=== PATIENT | female | born 1950 | race Caucasian/White ===

== ENCOUNTER 2023-08-12 13:12 | Emergency (ER) | payer MEDICARE, OTHER, SELFPAY ==
[2023-08-12] VITALS (10 sets, daily range): BP systolic 131–174; BP diastolic 68–85; BMI 26.5
[2023-08-12 14:05] LABS: % Basophils 0.7 % (0-2); % Eosinophils 1.8 % (0-6); % Immature Granulocytes 0.2 % (0-0.5); % Lymphocytes 29.7 % (20.5-51.1); % Monocytes 11.8 % (1.7-9.3); % Neutrophils 55.8 % (42.2-75.2); Absolute Eosinophils 0.1 10^3/uL (0-0.7); Absolute Lymphocytes 1.8 10^3/uL (1.2-3.4); Absolute Monocytes 0.7 10^3/uL (0.1-0.6); Absolute Neutrophils 3.4 10^3/uL (1.4-6.5); Hematocrit 38.3 % (37.0-47.0); Hemoglobin 13.5 g/dL (12.0-16.0); Mean Corp Hgb Conc. 35.2 g/dL (33.0-37.0); Mean Corpuscular Hgb 31.9 pg (27.0-31.0); Mean Corpuscular Volume 90.5 fL (81.0-99.0); Mean Platelet Volume 8.5 fL (7.4-10.4); Nucleated Red Blood Cells % 0 %; Platelet Count 212 10^3/uL (130-400); Red Blood Cell Count 4.23 10^6/uL (4.20-5.40); Red Cell Dist. Width 12.3 % (11.5-14.5)
[2023-08-12 14:20] LABS: ALT (SGPT) 21 U/L (0-35); AST (SGOT) 26 U/L (14-36); Albumin 4.1 g/dl (3.5-5.0); Alkaline Phosphatase 74 U/L (38-126); Blood Urea Nitrogen 20 mg/dl (7-17); Calcium 9.3 mg/dl (8.4-10.2); Carbon Dioxide 27 mmol/L (22-30); Chloride 105 mmol/L (98-107); Estimated Creatinine Clearance 43 ml/min; Glucose 95 mg/dl (70-99); Potassium 4.3 mmol/L (3.5-5.1); Sodium 140 mmol/L (135-145); Total Bilirubin 0.9 mg/dl (0.2-1.3); Total Protein 6.7 g/dl (6.3-8.2); eGFR > 60.00
[2023-08-12 14:30] LABS: Troponin I < 0.012 ng/ml
--- NOTE | 2023-08-12 15:05 | ED.GENMED ---
History of Present Illness
General
Chief Complaint: Chest Pain
Source: patient
Time Seen by Provider: 08/12/23 14:42
Travel History
Have you had any contact with someone who has COVID-19?: No
Do you have any symptoms of coronavirus? Fever > 100 degrees, chills, cough, shortness of breath, sore throat, loss of taste or smell, muscle aches, or headache?: No
History of Present Illness
History of Present Illness:
73-year-old female with past medical history of CAD status post coronary stent presenting to the emergency department after awakening this morning feeling a little bit lightheaded, blood pressure was significantly low around 77/50 on 2 separate
checks, symptoms resolving after a little while and drinking fluids. Around 1030 to 11 AM started to feel some discomfort on the left axillary region described to be a pulling sensation as well as a little bit of a headache prompting her to come to
the emergency department for further evaluation. Patient notes that she has a scheduled echocardiogram this coming as part of routine monitoring following her cardiac event. Presently, patient notes she is asymptomatic. Patient also
notes she had a little bit of a headache this morning but this is also resolved. Patient does note a recent change to her amlodipine and is not sure if maybe this is related.
Past History
Past History
ED Past Medical History: CAD, Hypercholesterolemia, Psychiatric (PTSD) and Other (Hep C)
ED Past Surgical History: Cardiac, Cholecystectomy, (X 2) and Gynecological (Hysterectomy)
Social History
Tobacco: Former smoker
Alcohol: Occasional
Drug: None
Personal:
Living: alone
Review of Systems
Review of Systems
All Other Systems: ROS reviewed and negative except as documented in HPI and ROS
Phy Exam
Physical Exam
Physical Exam:
GENERAL: Alert , in no apparent distress
EYE: clear conjunctiva b/l
HEAD: NCAT
ENT: o/p clr, mmm.
CARDIAC: Regular rate and rhythm, no murmur.
LUNGS: Clear breath sounds bilaterally, no acute respiratory distress, no wheezes/rales/rhonchi
ABDOMEN: Soft, without focal tenderness, no r/g, no cvat
NEUROLOGICAL: Alert and oriented
SKIN: Warm and dry, skin intact.
MUSCULOSKELETAL: No edema, well perfused.
PSYCH: Normal and appropriate interaction.
Scores
Heart Failure Risk
Heart Failure Risk Score: Not Applicable
Heart Score for Chest Pain Patients
STEMI patient?: No
History: Slightly or Non-Suspicious
ECG: Normal
Age: >/= 65 years
Risk Factors: >/= 3 Risk Factors or History of CAD
Troponin: </= Normal Limit
Heart Score for Chest Pain Patients: 4
Heart Score Risk: 20.3% MACE over next 6 weeks
Withdrawal Assessment of Alcohol
Withdrawal Assessment Completed?: Not applicable
Course
Orders/Labs/Results
Orders:
Orders
08/12/23 13:26
EKG [Electrocardiogram (*1)] Urgent
Reason for Study: Chest Pain
EKG- Treatment ONCE
08/12/23 13:54
Complete Blood Count/With Diff Urgent
Comprehensive Metabolic Panel Urgent
Troponin I Urgent
08/12/23 16:30
Troponin I Urgent
Abnormal Lab Results
24
13:54
MCH 31.9 H pg
(27.0-31.0)
Absolute Monos (auto) 0.7 H 10^3/uL
(0.1-0.6)
Monocytes % 11.8 H %
(1.7-9.3)
BUN 20 H mg/dl
(7-17)
08/12/23 13:54
08/12/23 13:54
Vital Signs
Initial and Last Documented VS:
Initial Vital Signs
Pulse Resp Pulse Ox
59 19 99
08/12/23 13:25 08/12/23 13:25 08/12/23 13:25
Last Documented Vital Signs
Temp Pulse Resp BP Pulse Ox
98.0 F 58 18 135/78 97
08/12/23 13:28 08/12/23 17:30 08/12/23 17:30 08/12/23 17:00 08/12/23 17:30
MDM/Problems Addressed
Differential Diagnosis Includes:
Symptomatic hypotension, medication side effect, less concern for ACS. Patient is noted to be hypertensive here so she could be experiencing symptomatic hypo and hypertension
MDM/Problems Addressed:
73-year-old female presenting emergency department for evaluation after noticing blood pressure this morning was a little bit low, was experiencing symptoms from this and after drinking fluids blood pressure improved. Patient notes that since
arriving to the emergency department her blood pressure has been slightly elevated now. She does note that she is currently asymptomatic and without any concerns. Patient's biggest concern was a pulling sensation was feeling in her left axillary
region. Given her history of coronary stent decided to come to the ER for further evaluation. EKG nonischemic, labs were initiated from triage and are largely unremarkable. Will repeat a troponin. Patient has already scheduled follow-up this
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 She is agreeable with this plan.
Chronic conditions affecting care: CAD
*Pulse Oximetry
Patient hypoxic: no
*EKG
Interpreted by ED Provider?: Yes
Heart Rate: 55
Rate: bradycardiac
Rhythm: sinus
Ischemia: no ischemia
*Tack Driller Interpretation
Rate: bradycardiac
Rhythm: sinus
*Critical Care Note
Total Time (30-74mins, 75-104mins- exclusive of procedures): Not Applicable
Data Reviewed
Review of Other/Old Records Reveals: Labs and Discharge Summary
Patient Management
Escalation/DeEscalation of care consider admission/obs:
Patient's repeat troponin is negative. She remains asymptomatic. Stable for discharge home and outpatient follow-up.
ED Attending Note
-
Portions of this chart may have been created with voice recognition software.� Occasional wrong word or��sound alike� substitutions may have occurred due to the inherent limitations of voice recognition software.
Discharge Plan
Departure
Patient Disposition: Home (Routine Discharge)
Date of Disposition: 08/12/23
Time of Disposition: 17:13
Patient with high blood pressure during this ER visit?: Yes
Discharge Problem:
Chest pain, Hypertension
Instructions: Chest Pain DCA Follow Up
Prescriptions:
No Action
temazepam 15 mg capsule
15 mg PO HS
Patient Comments:
01/18/2023: last filled 12/27/22, 30 tabs for 30 days from [facility]#[id number]
cholecalciferol (vitamin D3) 25 mcg (1,000 unit) Capsule
25 mcg PO DAILY
atorvastatin 80 mg Tablet
80 mg PO QPM Qty: 90 3RF
aspirin 81 mg Tablet,Chewable
81 mg PO DAILY Qty: 0 0RF
amlodipine 5 mg Tablet
5 mg PO DAILY Qty: 90 3RF
clopidogrel 75 mg Tablet
75 mg PO DAILY Qty: 90 3RF
pantoprazole 40 mg Tablet,Delayed Release (Dr/Ec)
40 mg PO DAILY Qty: 90 3RF
isosorbide mononitrate 30 mg tablet extended release 24 hr
15 mg PO DAILY
ezetimibe 10 mg tablet
10 mg PO QPM
Referrals:
Cathie Osuna DO [Family Provider] -
[2023-08-12 17:02] LABS: Troponin I < 0.012 ng/ml
== END 2023-08-12 17:15 | disposition home or self-care (01) ==
LOC: EMR 13:12
PROVIDERS: Physician Assistant Medical; EMERGENCY PHYSICIAN Emergency Medicine; FAMILY PHYSICIAN Internal Medicine
DX: R07.89 Other chest pain (principal); R42 Dizziness and giddiness; R51.9 Headache, unspecified; I10 Essential (primary) hypertension; I25.10 Atherosclerotic heart disease of native coronary artery without angina pectoris; Z95.5 Presence of coronary angioplasty implant and graft; E78.00 Pure hypercholesterolemia, unspecified; F43.10 Post-traumatic stress disorder, unspecified; Z87.891 Personal history of nicotine dependence; Z86.19 Personal history of other infectious and parasitic diseases; Z79.82 Long term (current) use of aspirin; Z90.49 Acquired absence of other specified parts of digestive tract
CPT/HCPCS: 99283; 80053; 84484; 85025; 93005

== ENCOUNTER 2023-10-09 23:37 | Emergency (ER) | payer MEDICARE, OTHER, SELFPAY ==
[2023-10-09 23:39] VITALS: BP 150/70
--- NOTE | 2023-10-09 23:47 | ED.GENMED ---
History of Present Illness
<GOLDIE Mejias - Last Filed: 10/10/23 04:50>
General
Chief Complaint: Breathing Problem
Source: patient and family
Time Seen by Provider: 10/09/23 23:45
Travel History
Have you had any contact with someone who has COVID-19?: No
Do you have any symptoms of coronavirus? Fever > 100 degrees, chills, cough, shortness of breath, sore throat, loss of taste or smell, muscle aches, or headache?: No
History of Present Illness
History of Present Illness:
73 year old female presents with c/o R hand cramping followed by 15 sec duration of hand tremor. She was sitting on the couch when her she felt a sudden onset of her R hand cramp up shortly followed by hand tremor for about 15 seconds before gaining
full function again. She states she got up from the couch after this incident when she felt lightheaded and stumbled to the right. She also reports perioral numbness 2 days ago that lasted about 10 minutes. Her symptoms have completely resolved at
this time. She is currently being followed by a die holder for 2 month history of SOB and lightheadedness. She admits her blood pressure is low during these times. She currently has a heart monitor on and documents any symptoms she has. She had a
stress test and echocardiogram completed last week and will be following up with her die holder within next month to review her heart monitor results.
Past History
<GOLDIE Mejias - Last Filed: 10/10/23 04:50>
Past History
ED Past Medical History: CAD, Hypercholesterolemia, Psychiatric (PTSD) and Other (Hep C)
ED Past Surgical History: Cardiac, Cholecystectomy, (X 2) and Gynecological (Hysterectomy)
Social History
Tobacco: Former smoker
Alcohol: Occasional
Drug: None
Personal:
Living: alone
Review of Systems
<GOLDIE Mejias - Last Filed: 10/10/23 04:50>
Review of Systems
Allergies reviewed?: Yes
All Other Systems: Not applicable
Constitutional: Reports no symptoms
EENT: Reports no symptoms
Respiratory: Reports no symptoms
Cardiac: Reports no symptoms
ABD/GI: Reports no symptoms
: Reports no symptoms
Musculoskeletal: Reports other (R hand cramping and tremor)
Skin: Reports no symptoms
Neurological: Reports dizzy and other (Gait abnormality )
Endocrine: Reports no symptoms
Hematologic/Lymphatic: Reports no symptoms
Psychiatric: Reports no symptoms
Phy Exam
<GOLDIE Mejias - Last Filed: 10/10/23 04:50>
General Physical Exam
General Presentation: well appearing and no apparent distress
General Skin: warm and dry
General Habitus: normal
General Mental: alert
General Hydration: appears well hydrated
ENT Exam
ENT Exam: EOMI, pharynx normal, neck supple and normocephalic
Eye Exam
Eye Exam: PERRL, cornea clear and conjunctiva normal
Cardiovascular Exam
Cardiovascular Exam: regular rate/rhythm, no edema and normal peripheral pulses
Pulmonary Exam
Pulmonary Exam: lungs clear, no respiratory distress, no rales, no crackles, no rhonchi, no stridor, no wheezing and no cough
Gastrointestinal Exam
Gastrointestinal Exam: normal bowel sounds, non tender, soft, no organomegaly, no pulsatile mass and non distended
Neurological Exam
Neurological Exam: alert, oriented x3, no motor deficits and speech normal
Musculoskeletal Exam
Musculoskeletal Exam: full ROM and no edema
Skin Exam
Skin Exam: normal color, warm/dry, no rash and no petechia
Psychiatric Exam
Psychiatric Exam: normal mood/affect
Scores
<Clary Silvestre GAYLE - Last Filed: 10/10/23 04:50>
Heart Failure Risk
Heart Failure Risk Score: Not Applicable
<Harshad Quinn DO - Last Filed: 10/10/23 04:50>
Heart Failure Risk
Heart Failure Risk Score: Not Applicable
Course
<GOLDIE Mejias - Last Filed: 10/10/23 04:50>
Orders/Labs/Results
Orders:
Orders
10/10/23 00:11
CT Head W/o Iv Contrast Urgent
Comment:
Reason For Exam: numbness leaning to right
10/10/23 00:14
CMP [Comprehensive Metabolic Panel] Urgent
Complete Blood Count/With Diff Urgent
Troponin I Urgent
Abnormal Lab Results
10/10/23
00:14
MCH 32.0 H pg
(27.0-31.0)
Abs Immat Gran (auto) 0.1 H 10^3/uL
(0-0.05)
Absolute Monos (auto) 0.8 H 10^3/uL
(0.1-0.6)
Immature Gran % 0.8 H %
(0-0.5)
Monocytes % 10.7 H %
(1.7-9.3)
BUN 18 H mg/dl
(7-17)
Glucose 114 H mg/dl
(70-99)
ALT 37 H U/L
(0-35)
10/10/23 00:14
10/10/23 00:14
Vital Signs
Initial and Last Documented VS:
Initial Vital Signs
Temp Pulse Resp BP Pulse Ox
97.8 F 62 18 150/70 98
10/09/23 23:39 10/09/23 23:39 10/09/23 23:39 10/09/23 23:39 10/09/23 23:39
Last Documented Vital Signs
Temp Pulse Resp BP Pulse Ox
97.8 F 61 18 119/60 97
10/09/23 23:39 10/09/23 23:56 10/09/23 23:39 10/10/23 00:50 10/10/23 00:50
<Harshad Quinn, DO - Last Filed: 10/10/23 04:50>
Orders/Labs/Results
Orders:
Orders
10/10/23 00:11
CT Head W/o Iv Contrast Urgent
Comment:
Reason For Exam: numbness leaning to right
10/10/23 00:14
CMP [Comprehensive Metabolic Panel] Urgent
Complete Blood Count/With Diff Urgent
Troponin I Urgent
Abnormal Lab Results
10/10/23
00:14
MCH 32.0 H pg
(27.0-31.0)
Abs Immat Gran (auto) 0.1 H 10^3/uL
(0-0.05)
Absolute Monos (auto) 0.8 H 10^3/uL
(0.1-0.6)
Immature Gran % 0.8 H %
(0-0.5)
Monocytes % 10.7 H %
(1.7-9.3)
BUN 18 H mg/dl
(7-17)
Glucose 114 H mg/dl
(70-99)
ALT 37 H U/L
(0-35)
10/10/23 00:14
10/10/23 00:14
Vital Signs
Initial and Last Documented VS:
Initial Vital Signs
Temp Pulse Resp BP Pulse Ox
97.8 F 62 18 150/70 98
10/09/23 23:39 10/09/23 23:39 10/09/23 23:39 10/09/23 23:39 10/09/23 23:39
Last Documented Vital Signs
Temp Pulse Resp BP Pulse Ox
97.8 F 61 18 119/60 97
10/09/23 23:39 10/09/23 23:56 10/09/23 23:39 10/10/23 00:50 10/10/23 00:50
<GOLDIE Mejias - Last Filed: 10/10/23 04:50>
MDM/Problems Addressed
Differential Diagnosis Includes:
Muscle cramping and spasm, dehydration, stroke. Dehydration was considered due to patients reported symptom of lightheadedness and hand cramping. Will order labs to follow electrolytes. Stroke was considered due tp patient's gait abnormality.
<GOLDIE Mejias - Last Filed: 10/10/23 04:50>
*Critical Care Note
Total Time (30-74mins, 75-104mins- exclusive of procedures): Not Applicable
<Harshad Quinn DO - Last Filed: 10/10/23 04:50>
*Critical Care Note
Total Time (30-74mins, 75-104mins- exclusive of procedures): Not Applicable
ED Attending Note
<GOLDIE Mejias - Last Filed: 10/10/23 04:50>
-
Portions of this chart may have been created with voice recognition software.� Occasional wrong word or��sound alike� substitutions may have occurred due to the inherent limitations of voice recognition software.
<Harshad Quinn DO - Last Filed: 10/10/23 04:50>
ED Attending Note
Patient seen and examined by attending physician: Yes
I performed the substantive portion of visit, reviewed & personally made and approve the management plan that is documented in note by myself or BALDOMERO.: Yes
ED Attending Note:
Pleasant 73-year-old female who presents with right hand cramping and shaking. This lasted several seconds this evening. Patient has been having symptoms for the last few months. She does follow-up with cardiology at [facility] and has a event monitor
in place. She states in the last week he has pushed the event recorder '80 times '2 to various complaints such as palpitations numbness and orthostatic hypotension. She denies any chest pain or shortness of breath. She does have a history of
coronary artery disease with coronary stenting. Patient states that tonight she got up from the couch and felt lightheaded and started to stumble towards the right. She states that the symptoms completely resolved. Currently she has no
complaints. Patient had stress testing and echocardiogram last week. Her Holter monitor still has several weeks left before they evaluate the results. Patient was seen in conjunction with the PA student. I have reviewed and agree with the
history and treatment plan presented. On my independent physical exam, patient is awake, alert, and oriented x3, heart is regular rate and rhythm. Lungs are clear to auscultation bilaterally no wheezes rales or rhonchi. Abdomen is soft nontender.
There is borborygmi present. Moves all 4 extremities. Skin is warm and dry. Neurologically she is completely intact. Cranial nerves II through XII are grossly intact. No neurological deficits noted.
Discharge Plan
Departure
Patient Disposition: Home (Routine Discharge)
Date of Disposition: 10/10/23
Time of Disposition: 01:20
Patient with high blood pressure during this ER visit?: No
Condition: Good
Discharge Problem:
Paresthesia, Palpitations
Instructions: Palpitations, Paresthesia (DC), Hand Pain (DC), BLOOD PRESSURE
Prescriptions:
No Action
temazepam 15 mg capsule
15 mg PO HS
Patient Comments:
01/18/2023: last filled 12/27/22, 30 tabs for 30 days from [facility]#[id number]
cholecalciferol (vitamin D3) 25 mcg (1,000 unit) Capsule
25 mcg PO DAILY
atorvastatin 80 mg Tablet
80 mg PO QPM Qty: 90 3RF
aspirin 81 mg Tablet,Chewable
81 mg PO DAILY Qty: 0 0RF
amlodipine 5 mg Tablet
5 mg PO DAILY Qty: 90 3RF
clopidogrel 75 mg Tablet
75 mg PO DAILY Qty: 90 3RF
pantoprazole 40 mg Tablet,Delayed Release (Dr/Ec)
40 mg PO DAILY Qty: 90 3RF
isosorbide mononitrate 30 mg tablet extended release 24 hr
15 mg PO DAILY
ezetimibe 10 mg tablet
10 mg PO QPM
Referrals:
Cathie Osuna DO [Family Provider] -
Interventions
Interventions:
*Risk Screen - Suicide Last Done: 10/09/23 23:39
*General Assessment Last Done: 10/09/23 23:59
*Neglect/Abuse Screening Last Done: 10/09/23 23:39
*ED COVID-19 Vaccine History Last Done: 10/09/23 23:59
ED- Pulmonary Assessment Last Done: 10/09/23 23:56
ED- Cardiac Assessment Last Done: 10/09/23 23:56
Discharge Date and Time
Discharge Date/Time: 10/10/23 01:31
Print Language: BENGALI
[2023-10-09 23:54] VITALS: BP 158/71
[2023-10-09 23:55] VITALS: BMI 25.7
[2023-10-10] VITALS: BP 149/75
[2023-10-10 00:33] LABS: % Basophils 0.4 % (0-2); % Eosinophils 2.7 % (0-6); % Immature Granulocytes 0.8 % (0-0.5); % Lymphocytes 32.7 % (20.5-51.1); % Monocytes 10.7 % (1.7-9.3); % Neutrophils 52.7 % (42.2-75.2); Absolute Eosinophils 0.2 10^3/uL (0-0.7); Absolute Immature Granulocytes 0.1 10^3/uL (0-0.05); Absolute Lymphocytes 2.4 10^3/uL (1.2-3.4); Absolute Monocytes 0.8 10^3/uL (0.1-0.6); Absolute Neutrophils 3.9 10^3/uL (1.4-6.5); Hematocrit 40.3 % (37.0-47.0); Mean Corp Hgb Conc. 34.7 g/dL (33.0-37.0); Mean Corpuscular Volume 92.2 fL (81.0-99.0); Mean Platelet Volume 8.9 fL (7.4-10.4); Nucleated Red Blood Cells % 0 %; Platelet Count 249 10^3/uL (130-400); Red Blood Cell Count 4.37 10^6/uL (4.20-5.40); Red Cell Dist. Width 11.9 % (11.5-14.5); White Blood Cell Count 7.3 10^3/uL (4.8-10.8)
[2023-10-10 00:36] LABS: ALT (SGPT) 37 U/L (0-35); AST (SGOT) 34 U/L (14-36); Albumin 4.6 g/dl (3.5-5.0); Alkaline Phosphatase 71 U/L (38-126); Blood Urea Nitrogen 18 mg/dl (7-17); Calcium 9.4 mg/dl (8.4-10.2); Carbon Dioxide 29 mmol/L (22-30); Chloride 105 mmol/L (98-107); Estimated Creatinine Clearance 43 ml/min; Glucose 114 mg/dl (70-99); Potassium 4.7 mmol/L (3.5-5.1); Sodium 138 mmol/L (135-145); Total Bilirubin 0.6 mg/dl (0.2-1.3); eGFR > 60.00
[2023-10-10 00:47] LABS: Troponin I < 0.012 ng/ml
[2023-10-10 00:50] VITALS: BP 119/60
--- NOTE | 2023-10-10 04:46 | DOWNTIME ---
There was a [employer] Client Date Night Caregiver Downtime on 10/10/2023 from 0100 to 10/10/2023 at 0439. Downtime documentation of patient's care, including medication administrations, has been reconciled in the electronic record per guidelines. Refer to the
patient's paper chart under the miscellaneous tab to see printed paper medication records and downtime forms.
== END 2023-10-10 01:31 | disposition home or self-care (01) ==
LOC: EMR 23:37
PROVIDERS: EMERGENCY PHYSICIAN Student in an Organized Health Care Education/Training Program; FAMILY PHYSICIAN Internal Medicine
DX: R00.2 Palpitations (principal); R20.2 Paresthesia of skin; R42 Dizziness and giddiness; R25.2 Cramp and spasm; R06.02 Shortness of breath; R25.1 Tremor, unspecified; R20.0 Anesthesia of skin; I25.10 Atherosclerotic heart disease of native coronary artery without angina pectoris; F43.10 Post-traumatic stress disorder, unspecified; E78.00 Pure hypercholesterolemia, unspecified; Z95.5 Presence of coronary angioplasty implant and graft; Z87.891 Personal history of nicotine dependence; Z86.19 Personal history of other infectious and parasitic diseases; Z90.49 Acquired absence of other specified parts of digestive tract; Z79.82 Long term (current) use of aspirin
CPT/HCPCS: 99284; 70450; 80053; 84484; 85025

== ENCOUNTER 2025-02-16 21:32 | Emergency (ER) | payer MEDICARE, OTHER, SELFPAY ==
[2025-02-16 21:35] VITALS: BP 131/71
[2025-02-16 21:57] LABS: Hematocrit 40.0 % (37.0-47.0); Hemoglobin 14.0 g/dL (12.0-16.0); Mean Corp Hgb Conc. 35.0 g/dL (33.0-37.0); Mean Corpuscular Volume 92.6 fL (81.0-99.0); Nucleated Red Blood Cells % 0 %; Platelet Count 221 10^3/uL (130-400); Red Cell Dist. Width 12.3 % (11.5-14.5)
[2025-02-16 22:12] LABS: ALT (SGPT) 23 U/L (0-35); AST (SGOT) 26 U/L (14-36); Albumin 4.9 g/dl (3.5-5.0); Alkaline Phosphatase 68 U/L (38-126); Blood Urea Nitrogen 27 mg/dl (7-17); Calcium 9.5 mg/dl (8.4-10.2); Carbon Dioxide 24 mmol/L (22-30); Chloride 108 mmol/L (98-107); Glucose 122 mg/dl (70-99); Potassium 4.4 mmol/L (3.5-5.1); Sodium 141 mmol/L (135-145); Total Protein 7.4 g/dl (6.3-8.2); eGFR 59.86
--- NOTE | 2025-02-17 00:51 | ED.GENMED ---
History of Present Illness
General
Chief Complaint: Eye Problems
Source: patient and previous hospital records (PTCA with stent January 2022)
Exam Limitations: none
Time Seen by Provider: 02/17/25 00:37
Nursing documentation reviewed up to this point in time: agreed with
History of Present Illness
History of Present Illness:
This is a 74-year-old woman with history of CAD, PTCA with stent January 2022, hyperlipidemia, hypertension, chronic kidney disease stage IIIa, PTSD/anxiety.
She follows with the health information managers annually at [facility] with annual visit due . Unremarkable stress test, echo September 2023.
She presents tonight with complaints of somewhat abrupt left eye pain then blurry vision of her left eye that began while watching TV this evening. Left eye pain described as feeling like she was poked in the left eye but denies insightful trauma.
Left eye discomfort and blurry vision persisted then she seemed to have some blurry vision of her right eye. No other associated symptoms, no headache, no dizziness nor lightheadedness. No history of similar episodes in the past.
She admits that blurred vision seemed to improve with wearing her glasses.
She denies loss of vision nor a sense of a curtain. No flashes of lights. Blurry vision has since resolved. No further eye pain.
Past History
Past History
ED Past Medical History: CAD, HTN, Hypercholesterolemia, Psychiatric (PTSD) and Other (Hep C; chronic kidney disease stage III AA)
ED Past Surgical History: Cardiac (PTCA with stent January 2022), Cholecystectomy, (X 2) and Gynecological (Hysterectomy)
Social History
Tobacco: Former smoker
Alcohol: Occasional
Drug: None
Personal:
Living: alone
Employment: Retired
Family History
Family History: CAD
Phy Exam
Physical Exam
Physical Exam:
GENERAL: 74-year-old woman appears her stated age, bright and alert, pleasant, appears in no acute distress.
EYE: pupils equal and reactive. Extraocular muscles intact. Gross visual acuity intact. Visual lang intact. Discs are sharp bilaterally. Anicteric
NECK: Supple, nontender, no meningismus, no significant adenopathy. No bruit.
ENT: oral mucosa is moist. No rhinorrhea.
CARDIAC: Regular rate and rhythm. no murmur.
LUNGS: Clear breath sounds bilaterally, no acute respiratory distress, no wheezes/rales/rhonchi
ABDOMEN: Soft, nondistended, without focal tenderness
NEUROLOGICAL: Alert and oriented x3, no focal neuro deficits. Gait is conti and steady.
SKIN: Warm and dry, normal color, skin intact. No rash.
MUSCULOSKELETAL: No C/C/E. peripheral pulses are full and equal b/l. No palpable tenderness.
PSYCH: Normal and appropriate interaction.
Course
Orders/Labs/Results
Orders:
Orders
02/16/25 21:41
CT Head W/o Iv Contrast Urgent
Comment:
Reason For Exam: blurry vision b/l eyes, L eye pain
02/16/25 21:45
Complete Blood Count/With Diff Urgent
Comprehensive Metabolic Panel Urgent
Sed Rate [Erythrocyte Sed Rate] Urgent
Abnormal Lab Results
02/16/25
21:45
MCH 32.4 H pg
(27.0-31.0)
Absolute Monos (auto) 0.7 H 10^3/uL
(0.1-0.6)
Monocytes % 11.1 H %
(1.7-9.3)
Chloride 108 H mmol/L
(98-107)
BUN 27 H mg/dl
(7-17)
Glucose 122 H mg/dl
(70-99)
02/16/25 21:45
02/16/25 21:45
Vital Signs
Initial and Last Documented VS:
Initial Vital Signs
Temp Pulse Resp BP Pulse Ox
97.9 F 74 16 131/71 98
02/16/25 21:35 02/16/25 21:35 02/16/25 21:35 02/16/25 21:35 02/16/25 21:35
Last Documented Vital Signs
Temp Pulse Resp BP Pulse Ox
97.9 F 74 16 131/71 98
02/16/25 21:35 02/16/25 21:35 02/16/25 21:35 02/16/25 21:35 02/17/25 00:55
MDM/Problems Addressed
Differential Diagnosis Includes:
The Differential Diagnosis includes, in no particular order and is not limited to:
1. Retinal detachment
2. Ophthalmic migraine
3. Vitreous hemorrhage
4. Central retinal artery occlusion
5. Central retinal vein occlusion
6. Anterior ischemic optic neuropathy
7. Macular degeneration
8. Acute angle-closure glaucoma
9. Transient ischemic attack
10. Hypertensive retinopathy
MDM/Problems Addressed:
Concern for retinal issue, TIA.
Reassuring that symptoms have resolved without return.
Unremarkable nonfocal exam.
Labs are unremarkable including normal sed rate at 2. CT of the head, similar and unchanged from previous CT September 2023.
Will discharge to home with recommendation for follow-up with ophthalmology for further evaluation.
Return precautions discussed.
Chronic conditions affecting care: HTN, CAD and Kidney disease (Chronic kidney disease stage IIIa)
*Radiology
Radiology exam reviewed: radiology read reviewed (CT of the head is unremarkable. Unchanged from previous September 2023)
*Pulse Oximetry
SaO2: 98
Oxygen Mode of Delivery: Room air
Patient hypoxic: no
*Critical Care Note
Total Time (30-74mins, 75-104mins- exclusive of procedures): Not Applicable
ED Attending Note
-
Portions of this chart may have been created with voice recognition software.� Occasional wrong word or��sound alike� substitutions may have occurred due to the inherent limitations of voice recognition software.
Discharge Plan
Departure
Patient Disposition: Home (Routine Discharge)
Date of Disposition: 02/17/25
Time of Disposition: 01:02
Patient with high blood pressure during this ER visit?: No
Condition: Good
Discharge Problem:
Blurred vision, left eye
Instructions: Double Vision (DC)
Prescriptions:
No Action
temazepam 15 mg capsule
15 mg PO HS
Patient Comments:
01/18/2023: last filled 12/27/22, 30 tabs for 30 days from [facility]#[id number]
cholecalciferol (vitamin D3) 25 mcg (1,000 unit) Capsule
25 mcg PO DAILY
atorvastatin 80 mg Tablet
80 mg PO QPM Qty: 90 3RF
aspirin 81 mg Tablet,Chewable
81 mg PO DAILY Qty: 0 0RF
amlodipine 5 mg Tablet
5 mg PO DAILY Qty: 90 3RF
clopidogrel 75 mg Tablet
75 mg PO DAILY Qty: 90 3RF
pantoprazole 40 mg Tablet,Delayed Release (Dr/Ec)
40 mg PO DAILY Qty: 90 3RF
isosorbide mononitrate 30 mg tablet extended release 24 hr
15 mg PO DAILY
ezetimibe 10 mg tablet
10 mg PO QPM
Referrals:
Niles Sharma MD [Active, Ophthalmology] - Next open appointment
Jeimy Armas MD [Family Provider]
Interventions
Interventions:
*Risk Screen - Suicide Last Done: 02/17/25 00:30
*General Assessment Last Done: 02/17/25 00:30
*Neglect/Abuse Screening Last Done: 02/17/25 00:30
*ED- Fall Risk Assessment Last Done: 02/17/25 00:30
*ED COVID-19 Vaccine History Last Done: 02/17/25 00:30
*Nursing Disposition Last Done: 02/17/25 01:54
Discharge Date and Time
Discharge Date/Time: 02/17/25 01:55
Print Language: LEBANESE
== END 2025-02-17 01:55 | disposition home or self-care (01) ==
LOC: EMR 21:32
PROVIDERS: Emergency Medicine; EMERGENCY PHYSICIAN Emergency Medicine; FAMILY PHYSICIAN Internal Medicine
DX: H53.8 Other visual disturbances (principal); I25.10 Atherosclerotic heart disease of native coronary artery without angina pectoris; I12.9 Hypertensive chronic kidney disease with stage 1 through stage 4 chronic kidney disease, or unspecified chronic kidney disease; N18.31 Chronic kidney disease, stage 3a; E78.00 Pure hypercholesterolemia, unspecified; F43.10 Post-traumatic stress disorder, unspecified; F41.9 Anxiety disorder, unspecified; B19.20 Unspecified viral hepatitis C without hepatic coma; Z95.5 Presence of coronary angioplasty implant and graft; Z87.891 Personal history of nicotine dependence; Z82.49 Family history of ischemic heart disease and other diseases of the circulatory system
CPT/HCPCS: 99284; 70450; 80053; 85025; 85652

== ENCOUNTER → 2025-03-04 07:01 | Outpatient (REF) | payer MEDICARE, OTHER, SELFPAY | LOC: RAD 07:01 | PROVIDERS: ATTENDING PHYSICIAN Ophthalmology; FAMILY PHYSICIAN Internal Medicine | DX: H53.129 Transient visual loss, unspecified eye (principal); H53.123 Transient visual loss, bilateral | CPT/HCPCS: 93880 ==